=== PATIENT | female | born 1960 | race Caucasian/White ===

== ENCOUNTER 2017-03-13 11:19 | Emergency (ER) | payer OTHER ==
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
--- NOTE | 2017-03-13 12:37 | RAD ---
INDICATION: Possible foreign body right middle finger. TECHNIQUE: 3 views of the right middle finger were obtained. FINDINGS: The bones are normal alignment. No fracture is seen. There is a faint linear density measuring approximately 1 mm in length present dorsal to the distal interphalangeal joint possibly representing a small foreign body versus artifact. IMPRESSION: POSSIBLE SMALL RADIOPAQUE FOREIGN BODY DORSAL TO THE DISTAL INTERPHALANGEAL JOINT VERSUS FILM ARTIFACT.
== END 2017-03-13 12:31 | disposition home or self-care (01) ==
LOC: UCEAST 11:19
DX: S61.232A Puncture wound without foreign body of right middle finger without damage to nail, initial encounter (principal); B99.9 Unspecified infectious disease; J45.909 Unspecified asthma, uncomplicated; Z91.040 Latex allergy status; W45.8XXA Other foreign body or object entering through skin, initial encounter
CPT/HCPCS: 73140; 99212; G0463